=== PATIENT | female | born 1985 | race Two or more races ===

== ENCOUNTER 2023-09-18 12:51 | Day surgery (SDC) | payer OTHER ==
[2023-09-17 16:18] LABS: HEMATOCRIT 35.3 % (36.0-45.00); MEAN CELL VOLUME 78.6 fL (80.00-100.00); MEAN CORPUSCULAR HEMOGLOBIN 26.7 pg (27.00-32.0); MEAN CORPUSCULAR HGB CONC 33.9 g/dl (32.0-36.0); PLATELET COUNT 262 K/uL (150-450); RED BLOOD COUNT 4.49 M/uL (4.00-6.00)
[2023-09-17 16:45] LABS: INR 0.97; PARTIAL THROMBOPLASTIN TIME 27.6 SECONDS (22.0-34.0); PROTHROMBIN TIME 10.2 SECONDS (9.0-11.5)
[2023-09-17 16:51] LABS: ALBUMIN 3.3 gm/dL (3.4-5.0); BILIRUBIN TOTAL 0.28 mg/dL (0.3-1.2); CALCIUM 9.8 mg/dL (8.5-10.1); CREATININE SERUM 0.71 mg/dL (0.55-1.02); GFR 91.17; GLOBULINA 3.9 G/DL (2.4-3.5); POTASSIUM 4.07 mEq/L (3.5-5.1); TOTAL PROTEIN 7.2 gm/dL (6.4-8.2)
[~2023-09-18] VITALS: Ht 167.6 cm; Wt 127.5 kg
[2023-09-18] MEDS ORDERED: TRANDATE300 MG PO (13:54)
[2023-09-18] MEDS ORDERED: NIFEDIPINE10 MG PO (13:55)
[2023-09-18] MEDS ORDERED: IRON18 MG PO (13:56)
[2023-09-18] MEDS ORDERED: PRENATAL TABLE1 EAC1 PO (13:56)
[2023-09-18] MEDS ORDERED: CEFOXITIN SODIUM 2,000 MG VIAL IV SCH (14:51)
[2023-09-18] MEDS ORDERED: RINGERS SOLUTION,LACTATED 1,000 ML IV SCH (15:00)
[2023-09-18] MEDS ORDERED: POVIDONE-IODINE 118 ML BOTT TOP ONE (16:15)
[2023-09-18] MEDS ORDERED: NIFEDIPINE 30 MG TAB.SA.OSM PO SCH (17:00)
[2023-09-18] MEDS ORDERED: LABETALOL HCL 300 MG TABLET PO SCH (17:00)
== END 2023-09-18 21:45 | disposition home or self-care (01) ==
LOC: CIR.AMB 12:51
PROVIDERS: ATTEND Obstetrics & Gynecology Maternal & Fetal Medicine
DX: O34.30 Maternal care for cervical incompetence, unspecified trimester (principal); Z3A.17 17 weeks gestation of pregnancy; Z88.6 Allergy status to analgesic agent; Z91.013 Allergy to seafood; Z88.8 Allergy status to other drugs, medicaments and biological substances; Z91.018 Allergy to other foods